=== PATIENT | female | born 1980 | race Caucasian/White ===

== ENCOUNTER 2020-10-07 10:39 | Outpatient (CLI) | payer SELFPAY ==
[2020-10-07 11:45] LABS: SARS-CoV-2 RNA PCR Negative (Negative)
== END 2020-10-07 10:40 | disposition home or self-care (01) ==
PROVIDERS: PCP Internal Medicine; Visit Provider Internal Medicine
DX: Z20.822 Contact with and (suspected) exposure to COVID-19 (principal)
CPT/HCPCS: C9803; U0003; U0005

== ENCOUNTER 2021-01-17 09:44 | Outpatient (CLI) | payer BC, SELFPAY ==
--- NOTE | ~2021-01-17 | XR_ITS ---
XR chest 2V DATE: 01/17/2021 10:19 INDICATION: Fall 3 days ago. Left-sided chest pain. TECHNIQUE: PA and lateral views COMPARISON: 08/23/2014 2 view chest FINDINGS: Normal heart size. No hilar or mediastinal enlargement. No pulmonary infiltrate or consolid ation, pleural effusion or pulmonary vascular congestion or pneumothorax. IMPRESSION: No active cardiopulmonary disease Reviewed, dictated and finalized at location B.
--- NOTE | ~2021-01-17 | XR_ITS ---
XR ribs LT 2V DATE: 01/17/2021 10:19 INDICATION: Fall 3 days ago. Left-sided chest pain. TECHNIQUE: 4 views of the left ribs COMPARISON: None FINDINGS: No left rib fracture is evident. No underlying pulmonary contusion, pleural effusion or pne umothorax. IMPRESSION: Negative Reviewed, dictated and finalized at location B. IMPRESSION: Negative
== END 2021-01-17 09:45 | disposition home or self-care (01) ==
PROVIDERS: PCP Internal Medicine; Visit Provider Internal Medicine
DX: R07.9 Chest pain, unspecified (principal)
CPT/HCPCS: 71046; 71100

== ENCOUNTER 2021-09-03 14:26 | Emergency (ER) | payer OTHER, SELFPAY ==
--- NOTE | ~2021-09-03 | CT_ITS ---
EXAMINATION: CT abdomen pelvis wo con DATE: 09/03/2021 15:24 INDICATION: Left flank pain, dysuria for 6 hours TECHNIQUE: Computed tomography (CT) of the abdomen and pelvis was performed without intravenous contr ast. Automated exposure control and iterative reconstruction technique were employed. Exam dose: 133 2.36 mGy-cm total exam DLP. COMPARISON: None. FINDINGS: The lung bases are clear. Normal heart size. No pericardial or pleural effusion. 7 mm hypoattenuating lesion of the hepatic dome; diffusion diagnosis includes most likely a hepatic c yst or hemangioma. Probable focal anterior fatty infiltration of the medial segment of the left hepat ic lobe. Status post cholecystectomy. Approximately 4.5 mm nonobstructing lower pole left renal calculus. No other urinary tract calculus o r hydroureteronephrosis is evident. There is some thickening of the anteriorly directed left renal pe lvis with adjacent fat stranding, which might be consistent with left urinary tract infection. Recomm end clinical correlation with urinalysis. Normal caliber of the abdominal aorta. No intraperitoneal or retroperitoneal or pelvic mass lesion or adenopathy or ascites. The uterus, adnexal areas and urinary bladder are unremarkable. Small sliding hiatal hernia. Postoperative change of the stomach and proximal small bowel. Normal destiny endix. No bowel obstruction or intraperitoneal free air. Small fat-containing umbilical hernia. No suspicious osteolytic or osteoblastic lesions. Degenerative changes of the thoracic and lumbar spi ne. IMPRESSION: Thickening of the left renal pelvis with mild adjacent fat stranding, suggesting left py elitis 4.5 mm nonobstructing lower pole left renal calculus Status post cholecystectomy. Postoperative change of the stomach and proximal small bowel Small sliding hiatal hernia Reviewed, dictated and finalized at Location [facility]. Reviewed, dictated and finalized at location A. IMPRESSION: Thickening of the left renal pelvis with mild adjacent fat strandi ng, suggesting left pyelitis 4.5 mm nonobstructing lower pole left renal calculus Status post cholecystectomy. Postoperative change of the stomach and proximal small bowel Small sliding hiatal hernia
[2021-09-03 14:42] VITALS: BP 137/78; PULSE 58; RESP 20; TEMP 36.2; O2SAT 95
--- NOTE | 2021-09-03 14:44 | ED.FEMALEGU ---
HPI - Female Genitourinary General Chief complaint: Abdominal Pain Stated complaint: back/side pain, unable to urinate or have a BM Source: patient and RN notes reviewed Mode of arrival: ambulatory Limitations: no limitations History of Present Illness MD elicited complaint: dysuria and flank pain (left) Onset (ago): hour(s) (5) Severity: moderate Quality of pain: dull and aching Consistency: constant Vaginal discharge: none Vaginal bleeding: none Urinary symptoms: Dysuria, Urgency, Frequency and Hematuria Exacerbating factors: movement Relieving factors: none Associated symptoms: denies other symptoms Treatment prior to arrival: none Patient : No Related Data Home Medications Medication Instructions Recorded Confirmed omeprazole 40 mg capsule,delayed 40 mg PO BID 02/02/21 release tramadol 50 mg tablet 50 mg PO Q6H PRN 02/02/21 Allergies Allergy/AdvReac Type Severity Reaction Status Date / Time Penicillins Allergy Unknown Hives Verified 02/02/21 08:40 Review of Systems Review of Systems: All systems reviewed & are unremarkable except as noted in HPI and below Constitutional: Constitutional: Denies chills and Denies fatigue Gastrointestinal: Gastrointestinal: Denies diarrhea, Denies nausea and Denies vomiting PMFSH Past Medical History Medical History (Updated 09/03/21 @ 16:29 by James Owens MD) Chronic LUQ pain Morbid obesity Nausea Surgical History Surgical History (Updated 09/03/21 @ 14:54 by James Owens MD) Gastric bypass status for obesity Family History Family History Father Hypertension Family history of elevated blood lipids Family history of diabetes mellitus in first degree relative Other Carcinoma of colon Cerebrovascular accident Family history of allergic disorder Family history of malignant neoplasm Family history of tuberculosis Social History Social History Smoking status: Never smoker Alcohol intake: current Substance use: never Exam Const: General: healthy appearing, no acute distress and alert Nutritional Appearance: well nourished and obese morbidly obese Orientation/consciousness: patient oriented x3 HENMT: Head: normal to inspection Ears: external ears normal Eyes: Conjunctivae: conjunctivae normal Pupils: Equal, round and reactive pupils present EOM: EOMs intact bilaterally Neck: Neck: normal visual inspection Resp: Effort & Inspection: normal respiratory effort Auscultation: clear to auscultation bilaterally Cardio: Rate: regular rate Rhythm: regular rhythm GI: GI Palp: Yes Soft to palpation, Yes Tenderness to palpation present (GI) (LUQ), Yes Guarding due to palpation present (GI) (LUQ) and No Rebound tenderness present Auscultation: normal bowel sounds : General: Yes CVA tenderness on the left Back/Spine/Pelvis: Cervical Spine: cervical ROM normal Thoracic/Lumbar Spine: thoraco-lumbar ROM normal Skin: General skin exam: normal color Rashes: no rashes Neuro: General: patient oriented x3, moves all extremities, no meningeal signs, no focal motor deficits and CN's II-XI intact bilaterally Speech: normal speech Gait exam (Neuro): Normal gait present Extrem: General: normal to inspection and no clubbing, cyanosis or edema Psych: Mental Status: mental status grossly normal Affect: normal affect Attitude: cooperative Thought content: Yes Normal thought content present Judgement: Good judgement present (Psych) Discharge Plan Discharge Clinical Impression: UTI (urinary tract infection) Qualifiers: Urinary tract infection type: acute pyelonephritis Qualified Code(s): N10 - Acute pyelonephritis Patient Disposition: Home, Self-Care Condition: Stable Instructions: Antibiotic Form, Kidney Infection (ED) Additional Instructions: follow-up with your primary care provider in 3-5 days to be sure i
[2021-09-03 14:55] LABS: Add Urine Microscopic? YES; Appearance Urine Clear (Clear); Bilirubin Urine 1+ (Negative); Blood Urine 2+ (Negative); Color Urine Yellow (Yellow); Glucose Urine UA Negative (Negative); Ketones Urine Trace (Negative); Leukocyte Esterase Ur 1+ LEU/UL (Negative); Nitrate Urine Positive (Negative); Protein Urine 2+ (Negative); Specific Grav Ur 1.025 (1.010-1.020); Urobilinogen Urine 0.2 mg/dL (0.2-1.0); pH Urine 5.5 (5.0-8.0)
[2021-09-03 15:01] LABS: Bacteria Urine 4+ /hpf; Mucus Urine Few /lpf; RBC Urine 21-50 /hpf (0-2); Squamous Epithelial Cell Urine Rare /hpf (Few); WBC Urine 16-20 /hpf (0-3)
[2021-09-03 15:12] LABS: Basophils Absolute Auto 0.03 K/mm3 (0.00-0.10); Basophils Percent Auto 0.6 % (0.0-1.0); Eosinophils Absolute Auto 0.02 K/mm3 (0.02-0.50); Eosinophils Percent Auto 0.4 % (1.0-6.0); Hematocrit 39.1 % (35.0-49.0); Hemoglobin 12.2 g/dL (12.0-15.0); Immature Granulocyte Absolute 0.01 K/mm3 (0.00-0.00); Immature Granulocyte Percent A 0.2 % (0.0-0.0); Lymphocytes Absolute Auto 1.23 K/mm3 (1.10-4.50); Lymphocytes Percent Auto 25.7 % (18.0-42.0); Mean Corpuscular HGB Conc 31.2 g/dL (32.0-36.0); Mean Corpuscular Hemoglobin 26.7 pg (27.0-31.0); Mean Corpuscular Volume 85.6 fL (78.0-102.0); Mean Platelet Volume 12.2 fl (9.2-11.8); Monocytes Absolute Auto 0.28 K/mm3 (0.10-0.90); Monocytes Percent Auto 5.8 % (2.0-11.0); Neutrophils Absolute Auto 3.2 K/mm3 (1.7-7.2); Neutrophils Percent Auto 67.3 % (50.0-70.0); Platelet Count Result 199 K/mm3 (150-420); Red Blood Count 4.57 M/mm3 (4.20-5.40); Red Cell Distribution Width 15.2 % (11.6-14.4); White Blood Count 4.8 K/mm3 (4.8-10.8)
[2021-09-03 15:27] LABS: Alanine Aminotransferase 37 U/L (14-59); Albumin Level 3.5 g/dL (3.4-5.0); Alkaline Phosphatase 63 U/L (46-116); Anion Gap 10 mmol/L (8-16); Aspartate Amino Transferase 28 U/L (15-37); Bilirubin,Total 1.2 mg/dL (0.00-1.00); Blood Urea Nitrogen 5 mg/dL (7-18); CRP 0.8 mg/dL (0.0-0.9); Calcium 8.5 mg/dL (8.5-10.1); Carbon Dioxide 30 mmol/L (21-32); Chloride 101 mmol/L (98-108); Estimated CRCL calculation 156 ml/min; Estimated Glomerular Filt Rate > 60; Glucose 123 mg/dL (70-99); Osmolality Calculated 290 mOsm/kg (285-295); Potassium 2.7 mmol/L (3.5-5.1); Sodium 141 mmol/L (136-145); Total Protein 6.7 g/dL (6.4-8.2)
[2021-09-03] MEDS: POTASSIUM BICARBONATE 25 MEQ TABEF 50 MEQ PO (15:45)
[2021-09-03] MEDS: cefTRIAXone 1 GM VIAL IM (16:25)
[2021-09-03] MEDS: LIDOCAINE HCL 1% LOCAL INJ 20 ML VIAL (16:25)
[2021-09-03 16:59] VITALS: BP 107/62; PULSE 60; RESP 20; TEMP 36.7; O2SAT 97
== END 2021-09-03 17:01 | disposition home or self-care (01) ==
PROVIDERS: Emergency Provider Emergency Medicine; PCP Internal Medicine
DX: N10 Acute pyelonephritis (principal)
CPT/HCPCS: 36415; 74176; 80053; 81001; 85025; 86140; 87077; 87086; 87088; 87186; 96372; 99284; A9270; J0696

== ENCOUNTER 2022-07-05 12:55 | Emergency (ER) | payer OTHER, SELFPAY ==
[2022-07-05 13:05] VITALS: BP 130/83; PULSE 64; RESP 18; TEMP 36.5; O2SAT 100
--- NOTE | 2022-07-05 13:56 | ED.NEUROSD ---
HPI - Neuro Symptoms/Deficit General Chief Complaint: Neuro Symptoms/Deficit Stated Complaint: TIRED/L ARM PAIN/L FACIAL NUMBNESS/ELEVATED BP Time Seen by Provider: 07/05/22 13:08 Source: patient Mode of arrival: ambulatory Limitations: no limitations History of Present Illness HPI Narrative: Ms. Simmons is a 42-year-old female patient presenting to clinic today with complaints of fatigue, left arm pain, left-sided facial numbness and tingling, elevated blood pressure, headache, and dizziness. She reports headache started on Saturday- dull ache. She developed the other symptoms last night and felt like this may be caused by anxiety so she took her Lexapro and states that this did not help with the symptoms. She reports the dizziness is more when she is getting up quickly and change of positions. Left arm pain is becoming gradually worse, however the left facial numbness is improving and states that it is only her upper lip that feels numb and tingling. She denies having an unsteady gait or any recent falls. She denies any acute or history of head injury. History of duodenal switch and cholecystectomy. She is a nonsmoker. Currently on her menses and does not take control. No history of diabetes. Denies any chest pain or shortness of breath. Related Data Home Medications Medication Instructions Recorded Confirmed escitalopram oxalate 10 mg tablet 10 mg PO DAILY 07/05/22 07/05/22 Allergies Allergy/AdvReac Type Severity Reaction Status Date / Time Penicillins Allergy Unknown Hives Verified 07/05/22 13:08 Review of Systems Review of Systems: Pertinent positives per HPI. Patient denies any fever, chills, rash, headache, visual changes, dizziness, cough, runny nose, sore throat, shortness of breath, chest pain, palpitations, nausea, vomiting, diarrhea, constipation, abdominal pain, or any urinary issues. [facility] Past Medical History Medical History (Updated 07/05/22 @ 14:37 by Tyrell Lopez APRN) Chronic LUQ pain Morbid obesity Nausea Surgical History Surgical History (Updated 09/03/21 @ 14:54 by James Owens MD) Gastric bypass status for obesity Family History Family History Father Hypertension Family history of elevated blood lipids Family history of diabetes mellitus in first degree relative Other Carcinoma of colon Cerebrovascular accident Family history of allergic disorder Family history of malignant neoplasm Family history of tuberculosis Social History Social History Smoking status: Never smoker Alcohol intake: current Substance use: never Comments At the time of my signature, I reviewed and agree with the nursing past medical, surgical, social, and family history. There is no relevant family history pertinent to the patient complaint. Exam Narrative: General: Well-developed, well nourished, in no apparent distress Head: Normocephalic, atraumatic Eyes: Pupils equally round and reactive to light bilaterally, EOM intact, sclera and conjunctive clear, no discharge, lids normal Ears: TMs intact and clear, ear canals clear, no drainage, grossly hearing normal. Nose: Nares patent, no discharge, no inflammation, no sinus tenderness. Mouth: Oropharynx without lesions or masses, good dentition, MMM. Tongue midline, even rise and fall of uvula Neck: Supple, trachea midline, no enlargement of anterior or posterior cervical nodes, no thyroid masses or goiter palpable. Cardio: Regular rate and rhythm, s1 and s2 normal, no murmur appreciated. Resp: Clear to auscultation bilaterally anteriorly and posteriorly, no rhonchi, rales, wheezing or rubs Musculoskeletal: No deformity, non-tender to palpation, grossly normal range of motion, muscle strength strong and equal, peripheral pulse strong, no edema, no cyanosis, normal gait and station Neuro: Alert and oriented x4 with
== END 2022-07-05 13:23 | disposition short-term general hospital (02) ==
PROVIDERS: Emergency Provider Nurse Practitioner Family; PCP Internal Medicine
DX: R20.2 Paresthesia of skin (principal); R42 Dizziness and giddiness; M79.602 Pain in left arm; R51.9 Headache, unspecified; R53.83 Other fatigue; E66.01 Morbid (severe) obesity due to excess calories; Z68.38 Body mass index [BMI] 38.0-38.9, adult; Z98.84 Bariatric surgery status
CPT/HCPCS: 99213; G0463

== ENCOUNTER 2022-07-05 13:50 | Emergency (ER) | payer OTHER, SELFPAY ==
[2022-07-05] VITALS (7 sets, daily range): BP systolic 97–127; BP diastolic 59–78; PULSE 51–64; RESP 14–16; TEMP 36.7; O2SAT 97–98
--- NOTE | ~2022-07-05 | XR_ITS ---
XR chest 2V DATE: 07/05/2022 15:25 INDICATION: Facial and left arm numbness for 8 hours TECHNIQUE: PA and lateral views COMPARISON: 01/22/2021 2 view chest FINDINGS: Normal heart size. No hilar or mediastinal enlargement. No pulmonary infiltrate or consolid ation, pleural effusion or pulmonary vascular congestion or pneumothorax. Status post cholecystectomy. IMPRESSION: No active cardiopulmonary disease Reviewed, dictated and finalized at location L. ATED WORK PLATFORM OPERATOR
--- NOTE | ~2022-07-05 | CT_ITS ---
EXAMINATION: CT brain wo con DATE: 07/05/2022 18:11 INDICATION: Left facial numbness and tingling. TECHNIQUE: Computed tomography (CT) of the head was performed without intravenous contrast. The mA wa s adjusted according to patient size. Iterative reconstruction technique was employed. The dose-lengt h product was 605.33 mGy-cm. 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 There is no intracranial hemorrhage, acute infarction, or abnormal intracranial mass lesion. The ventricles are normal in size. There is mild mucosal thickening in the paranasal sinuses. The orb its are normal. The mastoid air cells are normal. IMPRESSION: 1. 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 Reviewed, dictated and finalized at location A. L PRODUCER IMPRESSION: 1. Prominent perivascular space versus old infarct in the left parietal deep wh ite matter.
--- NOTE | ~2022-07-05 | US_ITS ---
EXAMINATION: US venous doppler E DATE: 07/05/2022 18:42 INDICATION: Left upper limb pain. TECHNIQUE: Grayscale ultrasound images without and with compression and Doppler ultrasound images of the left upper extremity veins were obtained. COMPARISON: None. FINDINGS: The visualized portions of the left internal jugular vein, subclavian vein, axillary vein, brachial v eins, basilic vein, radial vein, and ulnar vein are patent. IMPRESSION: 1. No deep venous thrombosis. Reviewed, dictated and finalized at location A. EMATICS LECTURER
--- NOTE | 2022-07-05 13:57 | ECG_ITS ---
Measurements Intervals [place] Rate: 54 P: 45 AL: 194 QRS: 18 QRSD: 91 T: 30 QT: 426 QTc: 406 Interpretive Statements SINUS BRADYCARDIA BORDERLINE ECG NO PREVIOUS ECG AVAILABLE FOR COMPARISON Electronically Signed On 07-05-2022 14:40:26 CUT FILER by Behzad Arevalo D.O.
[2022-07-05 14:16] LABS: Basophils Percent Auto 0.9 % (0.2-1.2); Eosinophils Absolute Auto 0.1 K/mm3 (0-0.3); Eosinophils Percent Auto 1.2 % (0-4.4); Hematocrit 32.7 % (37.0-47.0); Hemoglobin 10.2 g/dL (12.0-15.0); Lymphocytes Absolute Auto 1.81 K/mm3 (0.9-3.2); Lymphocytes Percent Auto 41.7 % (18.3-44.2); Mean Corpuscular HGB Conc 31.2 g/dl (32-36); Mean Corpuscular Hemoglobin 26.6 pg (26-34); Mean Corpuscular Volume 85.2 fl (80-100); Mean Platelet Volume 11.4 fl (7.4-10.4); Monocytes Absolute Auto 0.2 K/mm3 (0.1-0.6); Monocytes Percent Auto 5.3 % (2.6-8.5); Neutrophils Absolute Auto 2.2 K/mm3 (1.3-6.7); Neutrophils Percent Auto 50.9 % (45.5-73.1); Platelet Count Result 182 k/mm3 (150-375); Red Blood Count 3.84 M/mm3 (4.2-5.4); Red Cell Distribution Width 15.6 % (11.5-14.5); White Blood Count 4.3 K/mm3 (4.5-10.0)
[2022-07-05 14:22] LABS: Glucose Point of Care 83 mg/dl (65-105)
[2022-07-05 14:25] LABS: Alanine Aminotransferase 28 U/L (6-35); Albumin Level 4.1 g/dL (3.5-5.1); Alkaline Phosphatase 93 U/L (38-126); Anion Gap 4 mmol/L (8-16); Aspartate Amino Transferase 30 U/L (14-36); Bilirubin,Total 1.4 mg/dL (0.2-1.3); Blood Urea Nitrogen 6 mg/dL (7-17); Calcium 8.1 mg/dL (8.4-10.2); Carbon Dioxide 30 mmol/L (22-30); Chloride 101 mmol/L (98-107); Estimated Glomerular Filt Rate > 60; Glucose 95 mg/dL (65-110); Potassium 3.1 mmol/L (3.4-5.0); Sodium 135 mmol/L (137-145)
[2022-07-05 14:26] LABS: INR 1.1; Prothrombin Time 14.1 Seconds (11.1-14.7)
[2022-07-05 14:36] LABS: Troponin I < 0.012 ng/mL (0.000-0.034)
--- NOTE | 2022-07-05 17:22 | ED.GENADULT ---
HPI - General Adult General Chief complaint: Neuro Symptoms/Deficit Stated complaint: lue pain Time Seen by Provider: 07/05/22 17:22 Source: patient Mode of arrival: ambulatory Limitations: no limitations History of Present Illness HPI narrative: Patient is a 42 y/o female who presents to the ED with c/o LUE pain, left-sided facial numbness/tingling. Patient reports she developed slight numbness and tingling in her left-sided face last night. She states the tingling was only present in her left upper lip this morning, which has since resolved since being in the ED. Patient also reported having pain in her left upper arm last night. The pain has since persisted and has been constant. She states the pain is now radiating into her lower arm. She has not tried anything for these symptoms. She denies history of similar symptoms. She denies any chest pain, difficulty breathing, nausea, vomiting, focal weakness, confusion, slurred speech, difficulty swallowing, vision changes, dizziness, lightheadedness. Related Data Home Medications Medication Instructions Recorded Confirmed escitalopram oxalate 10 mg tablet 10 mg PO DAILY 07/05/22 07/05/22 Allergies Allergy/AdvReac Type Severity Reaction Status Date / Time Penicillins Allergy Unknown Hives Verified 07/05/22 13:08 Review of Systems Review of Systems: CONSTITUTIONAL: Denies fever, chills, or sweats. EYES: Denies visual changes. CARDIOVASCULAR: Denies chest pain. RESPIRATORY: Denies dyspnea. GASTROINTESTINAL: Denies abdominal pain, nausea, vomiting, or diarrhea. MUSCULOSKELETAL: See HPI. NEUROLOGIC: See HPI. All systems reviewed & are unremarkable except as noted in HPI and below PMFSH Past Medical History Medical History Anxiety Chronic LUQ pain Morbid obesity Nausea Surgical History Surgical History Gastric bypass status for obesity Status post biliopancreatic diversion with duodenal switch Family History Family History Father Hypertension Family history of elevated blood lipids Family history of diabetes mellitus in first degree relative Other Carcinoma of colon Cerebrovascular accident Family history of allergic disorder Family history of malignant neoplasm Family history of tuberculosis Social History Social History Smoking status: Never smoker Alcohol intake: current Substance use: never Exam Narrative: GENERAL: Well appearing, obese, non-toxic, in no acute distress. HEAD: Normocephalic, atraumatic. EYES: PERRL/EOMI, conjunctivae clear bilaterally. No nystagmus. NECK: Supple. No adenopathy, no masses. RESPIRATORY: Airway patent, respirations nonlabored. Clear to auscultation bilaterally, no rales, rhonchi, wheezing. CARDIOVASCULAR: Regular rate and rhythm without murmurs, rubs, or gallops. Radial pulses 2+ and equal bilaterally. ABDOMINAL: Soft, nontender, nondistended, no hepatosplenomegaly. Normoactive BS. MUSCULOSKELETAL: Moves all extremities. Strength/ROM intact without gross deformities or TTP. No edema. No calf tenderness. No significant tenderness to palpation throughout left upper extremity. Patient reporting mild discomfort in the left medial upper arm with fall LUE flexion overhead. SKIN: Warm, dry, normal color. No rashes. NEURO: A&O X3. Speech clear. Follows commands. CN II-XII intact. Sensation grossly intact. Steady gait. No ataxic movements. Strength 5/5 in upper and lower extremities bilaterally. Equal aircraft launch and recovery technician strength bilaterally. Atoa-iq-[id number] and [id number] testing intact bilaterally. No pronator drift. PSYCHIATRIC: Appropriate mood and affect. Normal interaction. Course Vital Signs Vital signs: Vital Signs Temperature 98.0 F 07/05/22 13:58 Pulse Rate 51 L 07/05/22
[2022-07-05 18:19] LABS: Magnesium 1.9 mg/dL (1.6-2.3)
[2022-07-05 18:32] LABS: Troponin I < 0.012 ng/mL (0.000-0.034)
[2022-07-05] MEDS: POTASSIUM CHLORIDE 20 MEQ TABLET 40 MEQ PO (18:49)
[2022-07-05 19:12] LABS: Influenza A QL RT-PCR Negative (Negative); Influenza B QL RT-PCR Negative (Negative); SARS-CoV-2 RNA PCR Negative
[2022-07-05] MEDS: ACETAMINOPHEN 500 MG TABLET 1000 MG PO (20:11)
== END 2022-07-05 20:22 | disposition home or self-care (01) ==
PROVIDERS: Emergency Medicine; Emergency Provider Physician Assistant; PCP Internal Medicine
DX: M79.602 Pain in left arm (principal); R20.2 Paresthesia of skin; Z20.822 Contact with and (suspected) exposure to COVID-19; F41.9 Anxiety disorder, unspecified; E66.01 Morbid (severe) obesity due to excess calories; Z98.84 Bariatric surgery status; R00.1 Bradycardia, unspecified
CPT/HCPCS: 36415; 70450; 71046; 80053; 81025; 82948; 83735; 84484; 85025; 85610; 85730; 87636; 93005; 93971; 99284; A9270

== ENCOUNTER 2023-02-19 08:05 | Emergency (ER) | payer OTHER, SELFPAY ==
--- NOTE | 2023-02-19 08:13 | ED.GENADULT ---
HPI - General Adult General Chief complaint: Upper Respiratory Infection Stated complaint: Ear ache;Congested nose;Nausea;Chills Source: patient, family and RN notes reviewed History of Present Illness HPI narrative: 42 yo F presents to urgent care with visitor at side. Pt states she began having runny nose and congestion yesterday. Pt states she had a sore throat yeterday but not today. Pt reports bilateral ear pressure, denies any pain. Pt is also stating she thinks she has a UTI and kidney stone. Pt reports left lower back, flank, and LLQ abdominal pain starting this morning along with nausea and urinary urgency. Pt also reporting chills. Denies any fevers, chest pain, diarrhea, or vomiting. Pt states she has had kidney stones before and this feels like one, but it's not as bad as the other one. Pt has taken Tylenol and a muscle relaxer at home. Related Data Home Medications Medication Instructions Recorded Confirmed No Home Medications 02/19/23 02/19/23 Allergies Allergy/AdvReac Type Severity Reaction Status Date / Time Penicillins Allergy Unknown Hives Verified 02/19/23 08:21 Review of Systems Review of Systems: Pertinent positives and pertinent negatives per HPI. PMFSH Past Medical History Medical History Anxiety Chronic LUQ pain Morbid obesity Nausea Surgical History Surgical History Gastric bypass status for obesity Status post biliopancreatic diversion with duodenal switch Family History Family History Father Hypertension Family history of elevated blood lipids Family history of diabetes mellitus in first degree relative Other Carcinoma of colon Cerebrovascular accident Family history of allergic disorder Family history of malignant neoplasm Family history of tuberculosis Social History Social History Smoking status: Never smoker Alcohol intake: current Substance use: never Comments At the time of my signature, I reviewed and agree with the nursing past medical, surgical, social, and family history. There is no relevant family history pertinent to the patient complaint. Exam Narrative: GENERAL: This is a well-nourished, well-developed patient, in no apparent distress. HEAD: normocephalic, atraumatic. EYES: Sclera clear/white. Vision is grossly intact. EARS: External ears normal, auditory canals clear and without drainage, TMs normal without perforation. Hearing grossly intact. NOSE: External nose normal with obvious nasal clear discharge, nares without redness. congestion noted. THROAT: Mucous membranes moist, posterior pharynx clear. NECK: Neck supple, non-tender without lymphadenopathy, masses or thyromegaly. CARDIOVASCULAR: Regular rate and rhythm without murmurs, gallops, or rubs. RESPIRATORY: Clear to auscultation. Breath sounds equal bilaterally. No wheezes, rales, or rhonchi. GASTROINTESTINAL: Abdomen soft, tender to LLQ, nondistended. Bowel sounds are active. No hepato-splenomegaly, or palpable masses. SKIN: warm, intact with no suspicious lesions or rash, good texture and turgor. NEURO: awake, alert, and oriented to person, place and time. There were no obvious focal neurologic abnormalities. EXTREMITIES: No clubbing, cyanosis, or edema. No joint tenderness, effusion, or edema noted. BACK: tender to left lower and left flank. Course Course Level of Care: Express Care Visit Vital Signs Vital signs: Vital Signs Temperature 96.9 F L 02/19/23 08:16 Pulse Rate 64 02/19/23 08:16 Respiratory Rate 16 02/19/23 08:16 Blood Pressure 114/74 02/19/23 08:16 Pulse Oximetry 100 02/19/23 08:16 Temperature 96.9 F L 02/19/23 08:17 Pulse Rate 64 02/19/23 08:17 Respiratory Rate 16 02/19/23 08:
[2023-02-19 08:16] VITALS: BP 114/74; PULSE 64; RESP 16; TEMP 36.1; O2SAT 100
[2023-02-19 08:17] VITALS: BP 114/74; PULSE 64; RESP 16; TEMP 36.1; O2SAT 100
== END 2023-02-19 08:45 | disposition short-term general hospital (02) ==
PROVIDERS: Emergency Provider Nurse Practitioner Family; PCP Internal Medicine
DX: R10.9 Unspecified abdominal pain (principal); J06.9 Acute upper respiratory infection, unspecified; E66.01 Morbid (severe) obesity due to excess calories; Z68.39 Body mass index [BMI] 39.0-39.9, adult
CPT/HCPCS: 81003; 99212; G0463

== ENCOUNTER 2023-02-19 09:08 | Emergency (ER) | payer OTHER, SELFPAY ==
--- NOTE | ~2023-02-19 | CT_ITS ---
EXAMINATION: CT abdomen pelvis w con INDICATION: Flank pain and nausea TECHNIQUE: Computed tomographic images of the abdomen and pelvis were obtained after the administrati on of 100 cc of Omnipaque 350 intravenous contrast. The dose-length product (DLP) was 1344.11 mGy-cm. Automated exposure control and iterative reconstruction technique were employed. COMPARISON: 08/16/2021 FINDINGS: Minimal dependent atelectasis is present in the lung bases. The heart size is normal. There is a small sliding hiatal hernia. Changes in the stomach likely reflect gastric sleeve surgery. Gomes ges of cholecystectomy are noted. There is mild splenomegaly, likely due to body habitus. The liver, pancreas, and adrenal glands are normal. There are three nonobstructing stones of the left kidney whi ch measure up to 5 mm. The right kidney is unremarkable. No pathologically enlarged abdominal or pelv ic lymph nodes are identified. No free intraperitoneal gas or evidence of bowel obstruction. The appe ndix is normal. IMPRESSION: 1. Nonobstructing left nephrolithiasis. Reviewed, dictated and finalized at location L.
[2023-02-19 09:10] VITALS: BP 127/57; PULSE 66; RESP 16; TEMP 36.5; O2SAT 100
--- NOTE | 2023-02-19 09:48 | PC.NURSE ---
Pt to bathroom, states she passed kidney stone & is feeling better
--- NOTE | 2023-02-19 10:45 | ED.GENADULT ---
HPI - General Adult General Chief complaint: Abdominal Pain Stated complaint: LLQ abdominal pain with flank pain - from Time Seen by Provider: 02/19/23 09:55 History of Present Illness HPI narrative: Patricia Simmons is a 42 y/o female who presents with reports of having left flank pain that started today. She reports that she went to an today and was encouraged to come here for further work up. She reports her urine was negative for infection at the but she is concerned that she might have an infection since she has urinary urgency today. She also reports that the pain feels similar to a kidney stone. She denies any fever/chills / nausea/vomiting / abdominal pain /chest pain/ shortness of breath. Related Data Allergies Allergy/AdvReac Type Severity Reaction Status Date / Time Penicillins Allergy Unknown Hives Verified 02/19/23 09:08 Review of Systems Review of Systems: CONSTITUTIONAL: Denies fever, chills, or sweats. EYES: Denies visual changes, redness, or discharge. ENT: Denies rhinorrhea, congestion, sore throat, or otalgia. CARDIOVASCULAR: Denies chest pain, palpitations, or edema. RESPIRATORY: Denies cough or dyspnea. GASTROINTESTINAL: Denies abdominal pain, nausea, vomiting, or diarrhea. Reports of left flank pain GENITOURINARY: Denies dysuria or hematuria. SKIN: Denies rash or itching. MUSCULOSKELETAL: Denies back pain, joint pain, or myalgia. NEUROLOGIC: Denies headache, numbness, dizziness, or weakness. PSYCHIATRIC: Denies anxiety or depression. [facility] Past Medical History Medical History Anxiety Chronic LUQ pain Morbid obesity Nausea Surgical History Surgical History Gastric bypass status for obesity Status post biliopancreatic diversion with duodenal switch Family History Family History Father Hypertension Family history of elevated blood lipids Family history of diabetes mellitus in first degree relative Other Carcinoma of colon Cerebrovascular accident Family history of allergic disorder Family history of malignant neoplasm Family history of tuberculosis Social History Social History Smoking status: Never smoker Alcohol intake: current Substance use: never Exam Narrative: GENERAL: Well-appearing, well-nourished, and in no acute distress. HEAD: Normocephalic, atraumatic. EYES: PERRLA and EOMI. ENT: Nares clear, no rhinorrhea or epistaxis. Mucous membranes moist. Oropharynx without tonsillar hypertrophy exudate or other lesions. NECK: Supple. No adenopathy or masses. No carotid bruits or JVD CHEST: Clear to auscultation. No respiratory distress. No wheezes rales or rhonchi HEART: Regular rate and rhythm. No murmur heard. Normal peripheral pulses. ABDOMEN: Soft, nontender, nondistended, normal active bowel sounds. Left CVA tenderness EXTREMITIES: Normal range of motion. No edema. SKIN: Warm, dry, no rash. NEURO: No focal deficits. Alert and oriented x3. PSYCH: Normal mood and affect. Course Vital Signs Vital signs: Vital Signs Temperature 36.5 C 02/19/23 09:10 Pulse Rate 66 02/19/23 09:10 Respiratory Rate 16 02/19/23 09:10 Blood Pressure 127/57 L 02/19/23 09:10 Pulse Oximetry 100 02/19/23 09:10 Oxygen Delivery Room Air 02/19/23 09:10 Temperature 36.5 C 02/19/23 09:10 Pulse Rate 64 02/19/23 12:54 Respiratory Rate 18 02/19/23 12:54 Blood Pressure 130/60 02/19/23 12:54 Pulse Oximetry 100 02/19/23 12:54 Oxygen Delivery Room Air 02/19/23 09:10 Medical Decision Making [facility] Narrative Medical decision making narrative: On exam pt reports that her pain has actually improved while here and believes she passed a kidney stone in the toilet while she was here giving her urine sample. She states that sh
[2023-02-19 11:17] LABS: Basophils Percent Auto 1.1 % (0.2-1.2); Eosinophils Percent Auto 0.4 % (0-4.4); Hematocrit 29.6 % (37.0-47.0); Hemoglobin 8.6 g/dL (12.0-15.0); Immature Granulocyte Absolute 0.01 K/mm3 (0.00-0.031); Immature Granulocyte Percent A 0.4 % (0-0.5); Lymphocytes Absolute Auto 0.75 K/mm3 (0.9-3.2); Lymphocytes Percent Auto 26.8 % (18.3-44.2); Mean Corpuscular HGB Conc 29.1 g/dl (32-36); Mean Corpuscular Hemoglobin 22.6 pg (26-34); Mean Corpuscular Volume 77.7 fl (80-100); Mean Platelet Volume 11.5 fl (7.4-10.4); Monocytes Absolute Auto 0.2 K/mm3 (0.1-0.6); Monocytes Percent Auto 5.7 % (2.6-8.5); Neutrophils Absolute Auto 1.8 K/mm3 (1.3-6.7); Neutrophils Percent Auto 65.6 % (45.5-73.1); Platelet Count Result 230 k/mm3 (150-375); Red Blood Count 3.81 M/mm3 (4.2-5.4); Red Cell Distribution Width 17.3 % (11.5-14.5); White Blood Count 2.8 K/mm3 (4.5-10.0)
[2023-02-19] MEDS: ONDANSETRON INJ 4 MG/2 ML VIAL IV PUSH (11:18)
[2023-02-19] MEDS: FAMOTIDINE 20 MG/2 ML VIAL IV PUSH (11:18)
[2023-02-19] MEDS: SODIUM CHLORIDE 0.9% IV 1,000 ML 999 ML IV CONT (11:18)
[2023-02-19 11:21] LABS: Appearance Urine Clear (Clear); Bacteria Urine 4+ /hpf; Bilirubin Urine Negative (Negative); Blood Urine 1+ (Negative); Color Urine Yellow (Yellow); Glucose Urine UA Negative (Negative); Ketones Urine Negative (Negative); Leukocyte Esterase Ur Trace LEU/UL (Negative); Need Manual Microscopic Reviewed; Nitrate Urine Negative (Negative); Non Pathogenic Casts 0-2; Protein Urine Negative (Negative); RBC Urine 0-2 /hpf (0-2); Specific Grav Ur 1.004 (1.001-1.035); Squamous Epithelial Cell Urine None seen /hpf (Few); Urobilinogen Urine 0.2 mg/dL (<2.0); pH Urine 6.5 (5.0-9.0)
[2023-02-19 11:25] LABS: Alanine Aminotransferase 27 U/L (6-35); Albumin Level 4.1 g/dL (3.5-5.1); Alkaline Phosphatase 87 U/L (38-126); Anion Gap 4 mmol/L (8-16); Aspartate Amino Transferase 31 U/L (14-36); Bilirubin,Total 1.3 mg/dL (0.2-1.3); Blood Urea Nitrogen 6 mg/dL (7-17); Calcium 8.3 mg/dL (8.4-10.2); Carbon Dioxide 30 mmol/L (22-30); Chloride 105 mmol/L (98-107); Estimated CRCL calculation 174 ml/min; Estimated Glomerular Filt Rate > 60; Glucose 90 mg/dL (65-110); Lipase 87 U/L (23-300); Potassium 3.7 mmol/L (3.4-5.0); Sodium 139 mmol/L (137-145)
--- NOTE | 2023-02-19 11:28 | PC.NURSE ---
patient states that there was a stone in the toilet after urinating. continues to feel discomfort
[2023-02-19 11:36] LABS: Lactic Acid Reflex 0.5 mmol/L (0.7-2.0)
[2023-02-19 11:36] LABS: Add Urine Microscopic? YES
[2023-02-19 11:40] LABS: Anisocytosis 1+ (NORMAL); Burr Cells 1+ (NORMAL); Hypochromasia 1+ (NORMAL); Ovalocytes 1+ (NORMAL); Platelet Estimate Adequate (Adequate); Poikilocytosis 1+ (NORMAL); Schistocytes Rare (NORMAL)
[2023-02-19] MEDS: SULFAMETHOXAZOLE/TRIMETHOPRIM 800/160 MG DS TABLET 1 TAB PO (12:52)
[2023-02-19 12:54] VITALS: BP 130/60; PULSE 64; RESP 18; O2SAT 100
== END 2023-02-19 12:55 | disposition home or self-care (01) ==
PROVIDERS: Emergency Provider Nurse Practitioner Family; PCP Internal Medicine
DX: N20.0 Calculus of kidney (principal); N30.01 Acute cystitis with hematuria
CPT/HCPCS: 36415; 74177; 80053; 81001; 81003; 81025; 83605; 83690; 85025; 87077; 87086; 87186; 96361; 96374; 96375; 99284; A9270; J2405; J7030; Q9967

== ENCOUNTER 2023-03-08 10:22 | Outpatient (CLI) | payer OTHER, SELFPAY ==
[2023-03-08 10:45] LABS: Basophils Absolute Auto 0.06 K/mm3 (0.00-0.10); Basophils Percent Auto 1.3 % (0.0-1.0); Eosinophils Absolute Auto 0.05 K/mm3 (0.02-0.50); Eosinophils Percent Auto 1.1 % (1.0-6.0); Hemoglobin 8.6 g/dL (12.0-15.0); Immature Granulocyte Absolute 0.01 K/mm3 (0.00-0.00); Immature Granulocyte Percent A 0.2 % (0.0-0.0); Lymphocytes Absolute Auto 1.79 K/mm3 (1.10-4.50); Lymphocytes Percent Auto 40.2 % (18.0-42.0); Mean Corpuscular HGB Conc 29.7 g/dL (32.0-36.0); Mean Corpuscular Hemoglobin 22.8 pg (27.0-31.0); Mean Corpuscular Volume 76.7 fL (78.0-102.0); Mean Platelet Volume 10.5 fl (9.2-11.8); Monocytes Absolute Auto 0.33 K/mm3 (0.10-0.90); Monocytes Percent Auto 7.4 % (2.0-11.0); Neutrophils Absolute Auto 2.2 K/mm3 (1.7-7.2); Neutrophils Percent Auto 49.8 % (50.0-70.0); Platelet Count Result 164 K/mm3 (150-420); Red Blood Count 3.78 M/mm3 (4.20-5.40); Red Cell Distribution Width 17.9 % (11.6-14.4); White Blood Count 4.5 K/mm3 (4.8-10.8)
[2023-03-08 10:47] LABS: Appearance Urine Clear (Clear); Bilirubin Urine Negative (Negative); Blood Urine Negative (Negative); Color Urine Light Yellow (Yellow); Glucose Urine UA Negative (Negative); Ketones Urine Negative (Negative); Leukocyte Esterase Ur 1+ (Negative); Nitrate Urine Positive (Negative); Protein Urine Negative (Negative); Specific Grav Ur 1.015 (1.010-1.020)
[2023-03-08 11:01] LABS: Add Urine Microscopic? YES; Bacteria Urine 3+ /hpf; RBC Urine None seen /hpf (0-2); Squamous Epithelial Cell Urine Occasional /hpf (Few); WBC Urine 16-20 /hpf (0-3)
[2023-03-08 11:33] LABS: Alanine Aminotransferase 25 U/L (14-59); Albumin Level 3.7 g/dL (3.4-5.0); Alkaline Phosphatase 99 U/L (46-116); Amylase 44 U/L (25-115); Anion Gap 8 mmol/L (8-16); Aspartate Amino Transferase 15 U/L (15-37); Bilirubin,Total 1.4 mg/dL (0.00-1.00); Blood Urea Nitrogen 6 mg/dL (7-18); Calcium 8.6 mg/dL (8.5-10.1); Carbon Dioxide 28 mmol/L (21-32); Chloride 105 mmol/L (98-108); Estimated Glomerular Filt Rate > 60; Ferritin 4 ng/mL (8-252); Glucose 88 mg/dL (70-99); Iron 21 ug/dL (50-170); Lipase 46 U/L (16-77); Osmolality Calculated 288 mOsm/kg (285-295); Percent Iron Saturation 5 % (12-57); Potassium 3.8 mmol/L (3.5-5.1); Sodium 141 mmol/L (136-145); Total Protein 6.8 g/dL (6.4-8.2)
[2023-03-11 23:25] LABS: H pylori, Urea Breath NOT DETECTED (NOT DETECTED)
== END 2023-03-08 10:23 | disposition home or self-care (01) ==
LOC: CHSLAB 10:25
PROVIDERS: PCP Internal Medicine; Visit Provider Nurse Practitioner Family
DX: R82.90 Unspecified abnormal findings in urine (principal); R10.9 Unspecified abdominal pain; N20.0 Calculus of kidney; D64.9 Anemia, unspecified; R16.1 Splenomegaly, not elsewhere classified
CPT/HCPCS: 36415; 80053; 81001; 82150; 82728; 83013; 83540; 83550; 83690; 85025; 87077; 87086; 87088; 87186

== ENCOUNTER 2023-03-22 10:11 | Outpatient (CLI) | payer OTHER, SELFPAY ==
--- NOTE | ~2023-03-22 | XR_ITS ---
Supine and upright views of the abdomen Clinical history: Left nephrolithiasis Findings: Bowel gas pattern is nonspecific. No evidence for obstruction or free air. Probable left lo wer pole renal stones are present, similar to those seen on recent CT. Cholecystectomy clips and righ t mid abdominal suture lines are noted. Osseous structures are intact. Impression: Probable left nephrolithiasis, similar to CT dated 02/19/2023. Reviewed, dictated and finalized at location . Impression: Probable left nephrolithiasis, similar to CT dated 02/19/2023.
== END 2023-03-22 10:12 | disposition home or self-care (01) ==
LOC: CHSIMG 10:13
PROVIDERS: PCP Internal Medicine; Visit Provider Nurse Practitioner
DX: N20.0 Calculus of kidney (principal)
CPT/HCPCS: 74018

== ENCOUNTER 2023-07-26 13:00 | Emergency (ER) | payer OTHER, SELFPAY ==
--- NOTE | ~2023-07-26 | XR_ITS ---
EXAMINATION: XR knee RT 3V DATE: 07/26/2023 14:03 INDICATION: Right knee pain TECHNIQUE: Three views of the right knee were obtained. COMPARISON: None. FINDINGS: Alignment is normal. No fracture or osteochondral lesion. There is mild tricompartmental os teoarthritis characterized by tiny marginal osteophytes. There is a small knee joint effusion. Soft t issues are unremarkable. IMPRESSION: 1. No acute osseous abnormality. Reviewed, dictated and finalized at location B. [employer]
--- NOTE | 2023-07-26 13:11 | ED.LOWEXIN ---
HPI - Extremity Injury (Lower) General Chief Complaint: Extremity Injury, Lower Stated Complaint: Knee pain Time Seen by Provider: 07/26/23 13:30 Source: patient Mode of arrival: ambulatory Limitations: no limitations History of Present Illness HPI Narrative: Patient is a 43-year-old female that presents with right knee pain that started several weeks ago. Patient had been line dancing and thinks she over did it. Since then the pain has improved but then noticed a hard bump on knee. Area is tender to touch. Patient is able to ambulate normally. Patient has been taking Tylenol. Denies any numbness, tingling or weakness to lower rest of the extremity Related Data Home Medications Medication Instructions Recorded Confirmed No Home Medications 07/26/23 07/26/23 Allergies Allergy/AdvReac Type Severity Reaction Status Date / Time Penicillins Allergy Unknown Hives Verified 02/19/23 09:08 Review of Systems Review of Systems: All systems reviewed & are unremarkable except as noted in HPI and below Constitutional: Constitutional: Denies body ache(s), Denies chills, Denies fatigue, Denies fever(s), Denies headache(s), Denies malaise and Denies weakness Eyes: Eyes: Denies blurry vision, Denies irritation and Denies loss of vision ENT: Denies otalgia, Denies headache(s), Denies nasal discharge, Denies sinus pain and Denies sore throat Cardiovascular: Cardiovascular: Denies chest pain, Denies irregular heart rhythm and Denies dyspnea Respiratory: Respiratory: Denies dyspnea Gastrointestinal: Gastrointestinal: Denies abdominal pain, Denies melena, Denies hematochezia, Denies diarrhea, Denies nausea and Denies vomiting Musculoskeletal: Musculoskeletal: Denies back pain, Denies myalgias and Reports arthralgias Integumentary/Breasts: Skin/Breast: Denies pruritus and Denies rash Neurologic: Denies headache(s), Denies loss of vision and Denies weakness Psychiatric: Psychiatric: Reports no additional psychiatric complaints Endocrine: Endocrine: Denies fatigue PMFSH Past Medical History Medical History Anxiety Chronic LUQ pain Morbid obesity Nausea Surgical History Surgical History Gastric bypass status for obesity Status post biliopancreatic diversion with duodenal switch Family History Family History Father Hypertension Family history of elevated blood lipids Family history of diabetes mellitus in first degree relative Other Carcinoma of colon Cerebrovascular accident Family history of allergic disorder Family history of malignant neoplasm Family history of tuberculosis Social History Social History Smoking status: Never smoker Alcohol intake: current Substance use: never Comments At time of signature, agree with nursing past medical, surgical, social and family history. There is no relevant family history pertinent to the presenting complaint. Exam Const: General: cooperative, healthy appearing, comfortable, no acute distress and well nourished Nutritional Appearance: well nourished Orientation/consciousness: patient oriented x3 Limitations: no limitations HENMT: Head: normal to inspection, normocephalic and atraumatic Ears: hearing grossly normal bilaterally and external ears normal Face/Nose/Sinus: Normal external nose present, normal facial exam and face symmetric Face and sinus: normal facial exam and face symmetric Mouth: Yes lip normal Eyes: General: appearance normal, both eyes and all related structures Alignment and Position: alignment normal and position normal Periorbital: periorbital findings normal Eyelids: eyelids normal Pupils: Equal, round and reactive pupils present EOM: EOMs intact bilaterally Neck: Neck: normal visual inspection, full ROM and supple C
[2023-07-26 13:12] VITALS: BP 100/72; PULSE 60; RESP 16; TEMP 36.5; O2SAT 100
[2023-07-26 13:13] VITALS: BP 100/72; PULSE 60; RESP 16; TEMP 36.5; O2SAT 100
== END 2023-07-26 14:42 | disposition home or self-care (01) ==
PROVIDERS: Emergency Provider Nurse Practitioner Family
DX: M25.761 Osteophyte, right knee (principal); M17.11 Unilateral primary osteoarthritis, right knee; M25.461 Effusion, right knee; E66.01 Morbid (severe) obesity due to excess calories; Z68.39 Body mass index [BMI] 39.0-39.9, adult; Z98.84 Bariatric surgery status
CPT/HCPCS: 73562; 99213; G0463

== ENCOUNTER 2023-08-21 12:04 | Emergency (ER) | payer OTHER, SELFPAY ==
--- NOTE | 2023-08-21 12:05 | ED.URI ---
HPI - URI/Sore Throat General Chief Complaint: Upper Respiratory Infection Stated Complaint: RUNNY NOSE/EARS/CHEST HEAVY Time Seen by Provider: 08/21/23 12:05 Source: patient Mode of arrival: ambulatory Limitations: no limitations History of Present Illness HPI Narrative: Patricia is a 43-year-old female patient presenting to the clinic today with complaints of runny nose, cough, ear discomfort, and chest feeling heavy. She reports symptoms have been going on for 2-3 days. She has done at home COVID test was negative. MD elicited complaint: sore throat and nasal congestion Related Data Home Medications Medication Instructions Recorded Confirmed No Home Medications 07/26/23 08/21/23 Allergies Allergy/AdvReac Type Severity Reaction Status Date / Time Penicillins Allergy Unknown Hives Verified 08/21/23 12:31 Review of Systems Review of Systems: Pertinent positives per HPI. Patient denies any fever, chills, rash, headache, visual changes, dizziness, shortness of breath, chest pain, palpitations, nausea, vomiting, diarrhea, constipation, abdominal pain, or any urinary issues. [facility] Past Medical History Medical History Anxiety Chronic LUQ pain Morbid obesity Nausea Surgical History Surgical History Gastric bypass status for obesity Status post biliopancreatic diversion with duodenal switch Family History Family History Father Hypertension Family history of elevated blood lipids Family history of diabetes mellitus in first degree relative Other Carcinoma of colon Cerebrovascular accident Family history of allergic disorder Family history of malignant neoplasm Family history of tuberculosis Social History Social History Smoking status: Never smoker Alcohol intake: current Substance use: never Comments At the time of my signature, I reviewed and agree with the nursing past medical, surgical, social, and family history. There is no relevant family history pertinent to the patient complaint. Exam Narrative: General: Well-developed, obese, in no apparent distress Head: Normocephalic, atraumatic Eyes: Pupils equally round and reactive to light bilaterally, EOM intact, sclera and conjunctive clear, no discharge, lids normal Ears: TMs intact and clear, ear canals clear, no drainage, grossly hearing normal. Nose: Nares patent, no discharge, no inflammation, no sinus tenderness. Mouth: Oral pharynx without lesions or masses, good dentition, MMM. Neck: Supple, trachea midline, no enlargement of anterior or posterior cervical nodes, no thyroid masses or goiter palpable. Cardio: Regular rate and rhythm, s1 and s2 normal, no murmur appreciated. Resp: Clear to auscultation bilaterally, no rhonchi, rales, wheezing or rubs Course Course Emergency Course: Portions of this record may have been created with voice recognition software. Level of Care: Express Care Visit Vital Signs Vital signs: Vital signs reviewed MDM - URI/Sore Throat MDM Narrative Medical decision making narrative: At the time of visit patient is resting comfortably on the exam table. Patient appears to be nontoxic. Labs: COVID and influenza testing was negative in the clinic today. Plan: I suspect patient has URI/viral syndrome. Supportive measures were discussed with the patient and they voiced understanding discharge instructions and agrees to treatment plan. Return precautions reviewed Differential Diagnosis Differential diagnosis: Likely upper respiratory infection, otitis media, sinusitis, viral infection, bronchitis, influenza, pharyngitis and other (COVID) Discharge Plan Discharge Clinical Impression: Acute viral syndrome URI (upper respiratory infection) [place]
[2023-08-21 12:23] VITALS: BP 112/67; PULSE 60; RESP 16; TEMP 36.6; O2SAT 100
== END 2023-08-21 12:52 | disposition home or self-care (01) ==
PROVIDERS: Emergency Provider Nurse Practitioner Family; PCP Internal Medicine
DX: B34.9 Viral infection, unspecified (principal); J06.9 Acute upper respiratory infection, unspecified; Z20.822 Contact with and (suspected) exposure to COVID-19; E66.01 Morbid (severe) obesity due to excess calories
CPT/HCPCS: 87426; 87804; 99213; G0463

== ENCOUNTER 2023-12-18 13:54 | Outpatient (CLI) | payer OTHER, SELFPAY ==
--- NOTE | 2023-12-18 14:05 | PC.NURSE ---
Here for OP infusion of iron
[2023-12-18 14:17] VITALS: BP 112/70; PULSE 68; RESP 18; TEMP 35.8; O2SAT 95
[2023-12-18 14:18] VITALS: BMI 38.4
[2023-12-18] MEDS: IRON SUCROSE COMPLEX 200 MG, IRON SUCROSE COMPLEX 100 MG in SODIUM CHLORIDE 0.9% IV 250 ML 125 MG IVPB (14:21)
[2023-12-18 16:56] VITALS: BP 94/59; PULSE 53; RESP 16; TEMP 36.2; O2SAT 92
--- NOTE | 2023-12-18 16:58 | PC.NURSE ---
IV infusion completed. IV site without redness or swelling. IV discontinued intact and pressure applied. Pressure dressing applied and patient was instructed on site care. Patient able to ambulate to car.
== END 2023-12-18 13:55 | disposition home or self-care (01) ==
PROVIDERS: PCP Internal Medicine; Visit Provider Internal Medicine
DX: D50.9 Iron deficiency anemia, unspecified (principal)
CPT/HCPCS: 96365; 96366; J1756; J7050

== ENCOUNTER 2024-04-05 12:23 | Emergency (ER) | payer OTHER, SELFPAY ==
--- NOTE | ~2024-04-05 | XR_ITS ---
Impression: Clear lungs. Clinical Indication: Cough PA and lateral views of the chest: Comparison: 04/17/2023 Findings: The lungs are clear, without evidence of focal consolidation or pleural effusion. Cardiome diastinal silhouette is within normal limits. There is kyphosis of the thoracic spine with diffuse de generative disc narrowing. Impression: Clear lungs. Reviewed, dictated and finalized at location .
--- NOTE | 2024-04-05 12:27 | ED.URI ---
HPI - URI/Sore Throat General Chief Complaint: Upper Respiratory Infection Stated Complaint: Sore Throat and Chest Pain Time Seen by Provider: 04/05/24 12:31 Source: patient, RN notes reviewed and old records reviewed Mode of arrival: ambulatory Limitations: no limitations History of Present Illness HPI Narrative: 43-year-old female presents to the [facility] with complaints of a sore throat that started Saturday, 4 days ago. Has tried taking cough drops. Also reports cough, for couple a days, concerned that she has pneumonia. Denies fevers, chest pain. States when she coughs her chest feels tight. Nothing when she is just sitting still. Related Data Home Medications Medication Instructions Recorded Confirmed No Home Medications 07/26/23 04/05/24 Allergies Allergy/AdvReac Type Severity Reaction Status Date / Time Penicillins Allergy Unknown Hives Verified 04/05/24 12:31 Review of Systems Review of Systems: All systems reviewed & are unremarkable except as noted in HPI and below Constitutional: Constitutional: Reports no additional constitutional complaints ENT: Reports as per HPI and Reports sore throat Cardiovascular: Cardiovascular: Reports no additional cardiovascular complaints, Denies chest pain and Denies dyspnea Respiratory: Respiratory: Reports as per HPI, Denies chest congestion, Reports cough and Denies dyspnea Gastrointestinal: Gastrointestinal: Reports no additional gastrointestinal complaints, Denies abdominal pain, Denies nausea and Denies vomiting Musculoskeletal: Musculoskeletal: Reports no additional musculoskeletal complaints Integumentary/Breasts: Skin/Breast: Reports system reviewed and no additional complaints, except as docu PMFSH Past Medical History Medical History Anxiety Chronic LUQ pain Morbid obesity Nausea Surgical History Surgical History Gastric bypass status for obesity Status post biliopancreatic diversion with duodenal switch Family History Family History Father Hypertension Family history of elevated blood lipids Family history of diabetes mellitus in first degree relative Other Carcinoma of colon Cerebrovascular accident Family history of allergic disorder Family history of malignant neoplasm Family history of tuberculosis Social History Social History Smoking status: Never smoker Alcohol intake: current Substance use: never Comments At the time of my signature, I reviewed and agree with the nursing past medical, surgical, social, and family history. There is no relevant family history pertinent to the patient complaint. Exam Const: General: cooperative, healthy appearing, comfortable, no acute distress, well developed, alert and well nourished Nutritional Appearance: well nourished Orientation/consciousness: patient oriented x3 Limitations: no limitations HENMT: Head: normal to inspection Ears: hearing grossly normal bilaterally, external ears normal, TM's normal bilaterally, EAC's normal, mastoids normal and no periauricular adenopathy Face/Nose/Sinus: Normal external nose present, normal facial exam and face symmetric Face and sinus: normal facial exam and face symmetric Mouth: Yes Normal oral and palatal mucosa present, Yes lip normal and Yes tongue normal Throat: posterior oropharynx normal, tonsils normal, uvula midline and no uvular edema Eyes: General: appearance normal, both eyes and all related structures Alignment and Position: alignment normal Periorbital: periorbital findings normal Neck: Neck: normal visual inspection, full ROM, no lymphadenopathy and no meningeal signs Chest: Chest palpation & inspection: normal inspection of the chest Resp: Effort & Inspection: normal respiratory effort and able to sp
[2024-04-05 12:35] VITALS: BP 100/70; PULSE 71; RESP 16; TEMP 36.6; O2SAT 100
[2024-04-05 12:57] LABS: EDSTREPNEGPOS1 Negative (Negative)
== END 2024-04-05 13:17 | disposition home or self-care (01) ==
PROVIDERS: Emergency Provider Nurse Practitioner; PCP Internal Medicine
DX: J02.8 Acute pharyngitis due to other specified organisms (principal); J06.9 Acute upper respiratory infection, unspecified; E66.01 Morbid (severe) obesity due to excess calories; Z68.33 Body mass index [BMI] 33.0-33.9, adult
CPT/HCPCS: 71046; 87081; 87880; 99213; G0463

== ENCOUNTER 2024-06-25 19:18 | Emergency (ER) | payer OTHER, SELFPAY ==
[2024-06-25 19:37] VITALS: BP 112/56; PULSE 64; RESP 18; TEMP 36.3; O2SAT 100
--- NOTE | 2024-06-25 19:49 | ED_ITS ---
HPI - Extremity Problem General Chief complaint: Extremity Problem,Nontraumatic Stated complaint: RT Shoulder Pain Source: patient Mode of arrival: ambulatory Limitations: no limitations History of Present Illness HPI Narrative: 44-year-old female presented for complaint of right shoulder pain for 2 weeks following an injury. She states while walking up the stairs she slipped and fell landing on the right elbow. Denies pain radiating down the arm, numbness, tingling, or weakness. Endorses slight decreased range of motion at the shoulder due to the pain. Has been taking Tylenol and using ice and massage gu n. Related Data Allergies Allergy/AdvReac Type Severity Reaction Status Date / Time Penicillins Allergy Unknown Hives Verified 06/25/24 19:49 Review of Systems Review of Systems: CONSTITUTIONAL: Denies body aches, fever, chills CARDIOVASCULAR: Denies chest pain, palpitations, or edema. RESPIRATORY: Denies cough or dyspnea. GASTROINTESTINAL: Denies abdominal pain, nausea, vomiting, or diarrhea. SKIN: Denies rash, itching, or wounds. MUSCULOSKELETAL: Reports right shoulder pain NEUROLOGIC: Denies numbness, tingling, or weakness. All systems reviewed & are unremarkable except as noted in HPI and below PMFSH Past Medical History Medical History Anxiety Morbid obesity Nausea Chronic LUQ pain Surgical History Surgical History Status post biliopancreatic diversion with duodenal switch Gastric bypass status for obesity Family History Family History Father Hypertension Family history of elevated blood lipids Family history of diabetes mellitus in first degree relative Other Carcinoma of colon Cerebrovascular accident Family history of allergic disorder Family history of malignant neoplasm Family history of tuberculosis Social History Social History Smoking status: Never smoker Alcohol intake: current Substance use: never Comments At time of signature, I have reviewed and agree with nursing past medical, surgical, social and family history unless otherwise noted. Please see nursing chart for further information. There is no relevant family history pertinent to the presenting complaint Exam Narrative: GENERAL: Well-appearing CHEST: Speaks in full sentences. No respiratory distress. HEART: Regular rate and rhythm. Normal and equal peripheral pulses. EXTREMITIES: RUPatito has normal strength and sensation, slightly decreased range of motion at shoulder with overhead movement due to pain with movement. Tender with palpation over scapula and deltoid. No swelling erythema or ecchymosis, No open wounds, or obvious deformity; alignment normal, pulse palpable and equal bilaterally, skin warm, dry, pink. Capillary refill less than 3 seconds. SKIN: Warm, dry, no rash. NEURO: Alert and oriented x3. PSYCH: Normal mood and affect Course Course Emergency Course: Patient is aware of diagnosis, understands and agrees to treatment plan. Anticipatory guidance given. Patient agrees to follow-up as directed and is aware of reasons to seek care at the emergency department. Portions of this record may have been created with voice recognition software Level of Care: Express Care Visit Vital Signs Vital signs: Vital Signs Temperature 97.4 F L 06/25/24 19:37 Pulse Rate 64 06/25/24 19:37 Respiratory Rate 18 06/25/24 19:37 Blood Pressure 112/56 L 06/25/24 19:37 Pulse Oximetry 100 06/25/24 19:37 Oxygen Delivery Room Air 06/25/24 19:37 Temperature 97.4 F L 06/25/24 19:37 Pulse Rate 64 06/25/24 19:37 Respiratory Rate 18 06/25/24 19:37 Blood Pressure 112/56 L 06/25/24 19:37 Pulse Oximetry 100 06/25/24 19:37 Oxygen Delivery Room Air 06/25/24 19:37 Reviewed MDM - Extremity (Nontraumatic) MDM Narrative Medical decision making narrative: Discussed physical exam findings. Advised supportive measures and signs/symptoms to go to the ER. Pt is appropriate for outpt treatment and f/u. Provided with in fo to f/u with Ortho. Differential Diagnosis Differential diagnosis: Likely other (Shoulder dislocation, clavicle fracture, humerus fracture, scapular fracture, acromioclavicular joint injury, rotator cuff tear, bicep tendon rupture, tricep tendon rupture) Discharge Plan Discharge Clinical Impression: Acute pain of right shoulder Patient Disposition: Home, Self-Care Condition: Stable Instructions: Rotator Cuff Injury (ED), Shoulder Pain (ED) Additional Instructions: Rest. Avoid pushing, pulling, lifting or anything that worsens the symptoms Take the steroid as directed Tylenol 1000mg every 8 hours as needed Cyclobenzaprine (Flexeril) is a muscle relaxer. Take it as directed. It can cause drowsiness so do not drive or operate machinery until you know how it makes you feel. Alternate ice/heat to the site. Lidocaine or salon pas pain patch or use pain cream like icy/hot or biofreeze. Follow up with your primary care provider and promotion specialist. Call tomorrow to schedule appointment Go to the ER for worsening symptoms or concerns Patient Language: [place] Prescriptions: New cyclobenzaprine 10 mg tablet 10 mg PO TID PRN (Reason: muscle spasm) Qty: 10 0RF prednisone 50 mg tablet 50 mg PO DAILY Qty: 5 0RF Follow-up/Referrals: Torres Barrow MD [Primary Care Provider] -
== END 2024-06-25 20:09 | disposition home or self-care (01) ==
PROVIDERS: Emergency Provider Nurse Practitioner Family; PCP Internal Medicine
DX: M25.511 Pain in right shoulder (principal); E66.01 Morbid (severe) obesity due to excess calories; Z98.84 Bariatric surgery status
CPT/HCPCS: 99213; G0463

== ENCOUNTER 2024-07-03 16:23 | Outpatient (CLI) | payer OTHER, SELFPAY ==
--- NOTE | ~2024-07-03 | XR_ITS ---
EXAM: XR shoulder RT min 2V DATE: 07/03/2024 16:33 HISTORY: M25.511 - Pain in right shoulder . COMPARISON: None available. FINDINGS: Normal mineralization. No fracture or dislocation. No lytic or blastic lesion. Mild degene rative change at the AC joint. No erosion or periosteal change. Soft tissues within normal limits. IMPRESSION: No acute osseous finding in the right shoulder. Reviewed, dictated and finalized at location K. [employer]
== END 2024-07-03 16:24 | disposition home or self-care (01) ==
LOC: MICIMG 16:24
PROVIDERS: PCP Internal Medicine; Visit Provider Orthopaedic Surgery
DX: M25.511 Pain in right shoulder (principal)
CPT/HCPCS: 73030

== ENCOUNTER 2024-08-12 14:37 | Outpatient (CLI) | payer OTHER, SELFPAY ==
--- NOTE | ~2024-08-12 | MR_ITS ---
EXAMINATION: MR shoulder RT wo con DATE: 08/12/2024 15:13 INDICATION: M75.21 - Bicipital tendinitis, right shoulder . TECHNIQUE: Magnetic resonance imaging (MRI) of the right shoulder was performed without intravenous c ontrast. Sequences included axial PD-weighted FS FSE, coronal oblique PD-weighted FS FSE and T2-weigh veronica FS FSE, and sagittal oblique T2-weighted FS FSE and T1-weighted FSE. COMPARISON: X-ray right shoulder 07/03/2024. FINDINGS: Coracoacromial arch: Mild anterior downsloping of the slightly curved acromion (type II). 3 mm inferiorly directed distal clavicular osteophyte. Subacromial space measures 6 cm. No subcoracoid narrowing. Rotator cuff: Mild supraspinatus thinning. Mildly increased signal intensity at the muscular tendinous junction of the supraspinatus. No focal supraspinatus defect or atrophy. The infraspinatus, teres minor, and subs capularis are intact. Biceps tendon and glenoid labrum: Mild degenerative signal change in the superior labrum, without focal tear. The long head of biceps t endon is intact. Fluid: Minimal subacromial subdeltoid fluid with mild superior cuff fraying. Bones/cartilage: Marrow edema in the distal clavicle and proximal acromion. Small subchondral cyst in the proximal acr omion. Abnormal signal and thickening of the coracoclavicular ligament. Mild abnormal signal surround ing the coracoacromial ligament. Mild-moderate degenerative change at the AC joint. Abnormal signal s urrounding the distal clavicle AC joint and proximal acromion. IMPRESSION: Mild osseous outlet compromise with small volume subacromial subdeltoid sinusitis. No rotator cuff te ar. Mild supraspinatus tendinopathy and superior fraying. Mild to moderate degenerative change at the AC joint with surrounding inflammatory change, and the jaimes ggestion of partial tears of the acromioclavicular and coracoclavicular ligaments as can be seen with prior AC joint injury. Long head of biceps tendon is intact. No MRI evidence of significant biceps tendinitis. Reviewed, dictated and finalized at location [facility] IMPRESSION: Mild osseous outlet compromise with small volume subacromial subdeltoid sinusit is. No rotator cuff tear. Mild supraspinatus tendinopathy and superior fraying. Mild to moderate degenerative change at the AC joint with surrounding inflammat ory change, and the suggestion of partial tears of the acromioclavicular and co racoclavicular ligaments as can be seen with prior AC joint injury. Long head of biceps tendon is intact. No MRI evidence of significant biceps ten dinitis.
== END 2024-08-12 14:38 | disposition home or self-care (01) ==
PROVIDERS: PCP Internal Medicine; Visit Provider Physician Assistant Surgical
DX: M75.21 Bicipital tendinitis, right shoulder (principal); M75.81 Other shoulder lesions, right shoulder
CPT/HCPCS: 73221

== ENCOUNTER 2024-10-31 08:12 | Outpatient (CLI) | payer OTHER, SELFPAY ==
[2024-10-31 08:53] LABS: Hematocrit 28.7 % (37.0-47.0); Hemoglobin 7.8 g/dL (12.0-15.0)
== END 2024-10-31 08:13 | disposition home or self-care (01) ==
LOC: ANHLAB 08:13
PROVIDERS: PCP Internal Medicine; Visit Provider Anesthesiology
DX: D64.9 Anemia, unspecified (principal)
CPT/HCPCS: 36415; 85014; 85018

== ENCOUNTER 2024-11-05 00:49 | Day surgery (SDC) | payer OTHER, SELFPAY ==
[2024-10-29 08:06] VITALS: BMI 39.5
--- NOTE | 2024-10-29 08:13 | PC.NURSE ---
Report to the Outpatient Waiting Room, entrance under the green pavilion located off [facility], at time _1100_ on date _[id number]_. Planned Procedure Time: _1pm_.? Time changes happen often and if your time is changed the preop area will call you the afternoon before. - You and your visitor will be asked to self-screen and do not enter if you have any COVID symptoms. Please call surgeon if you need to reschedule. - A mask is optional within the hospital at this time. Patients may have clear liquids (water, carbonated beverages, clear teas, apple juice) until 3 hours prior to surgery with a maximum of 20 ounces. - No food from midnight until time of surgery and no smoking, or chewing tobacco (or any form of nicotine). No chewing gum, candy or mints. Take only the following medications with a SIP of water on the morning of surgery: ___None____ DO NOT STOP ANY OF YOUR OTHER PRESCRIPTION MEDICATIONS PRIOR TO SURGERY EXCEPT THE FOLLOWING Hold all vitamins and supplements for 3 days per anesthesiologist. Medications to discontinue per physician Date to take last dose Please no make-up, nail belgian, hairspray, perfume, deodorant, or body powder the day of surgery.? No jewelry (including any body piercings) or valuables the day of surgery, leave them at home.? Please take a shower or bath the night before, or the morning of, surgery with an antibacterial soap.? Wear comfortable, loose fitting clothing.? - Jewelry must be removed prior to entering the operating room.? Rings and piercings that are not removed may be cut off. - The hospital will not accept responsibility for valuables.? - Please leave all valuables, including medications, at home the day of surgery. If you are going home after surgery, a licensed shag truck driver must drive you home.? - NO public transportation without another adult if you receive anesthesia. - We recommend that an adult stay with you for 24 hours following discharge. - We also recommend that you do not drive, make important decision, drink alcoholic beverages, or take any drugs that were not prescribed by your health care provider for at least 24 hours after your discharge time. Follow any additional instructions given to you from your surgeon. Telephone instructions given to __Stephanie___and asked if any additional questions and then verbalized understanding. Patient advised to call surgeon office or pre surgery nurse liaison [phone] if any additional questions.
--- NOTE | 2024-11-03 15:00 | SUR.PREOP ---
Hgb 7.8 - OK to proceed with shoulder scope per Dr. Brownlee. He recommends patient begin taking her iron supplement. Spoke with patient regarding low hemoglobin and encouraged her to take her iron supplement. Pt verbalizes understanding.
[2024-11-05] VITALS (8 sets, daily range): BP systolic 116–132; BP diastolic 68–77; PULSE 60–78; RESP 12–15; TEMP 36.2–36.6; O2SAT 98–100; BMI 39.6
--- NOTE | 2024-11-05 07:35 | WPDHPUPDATE1 ---
History and Physical Update Update Date/Time: 11/05/24 07:35 History and Physical has been reviewed, including an updated exam of the patient. There are NO changes in the patient's condition. Risks, benefits, and alternatives have been discussed and questions answered. Patient agrees to proceed with procedure.
[2024-11-05] MEDS: LACTATED RINGERS 1,000 ML 30 ML IV CONT ×3 (12:00→15:32)
[2024-11-05] MEDS: KETOROLAC 15 MG/ML VIAL (*BKC) IV PUSH (12:00)
[2024-11-05 12:01] LABS: BEDSIDEPREGUCG Negative (Negative)
--- NOTE | 2024-11-05 12:44 | P.PNAN_ITS ---
Anes - Initial Pre Proc Eval Procedure: Operation Date: 11/05/24 13:00 Proposed Procedures p Right Shoulder Arthroscopic Distal Clavicle Excision with Subacromial Decompression - Cruz Bettencourt MD Date/Time: 11/05/24 12:44 Surgeon: Cruz Bettencourt MD Pre Op Diagnosis: Right Rot Cuff Tendonitis, AC Joint Arthritis Patient Data Age: 44 Gender: F Height: 1.75 m Weight: 121.8 kg Last Vital Signs Temp 36.6 C 11/05/24 11:57 Pulse 77 11/05/24 11:57 BP 116/70 11/05/24 11:57 Pulse Ox 99 11/05/24 11:57 O2 Del Method Room Air 11/05/24 11:57 Allergies Allergy/AdvReac Type Severity Reaction Status Date / Time Penicillins Allergy Unknown Hives Verified 11/05/24 11:56 Home Medications ?Medication ?Instructions ?Recorded ?Confirmed ?Type oxycodone-acetaminophen 5 mg-325 1 - 2 tablet PO Q4-6H PRN pain 7 11/05/24 Rx mg tablet days #30 tabs Laboratory Tests 11/05/24 11:57 POC Urine HCG, Qual Negative (Negative) Patient hx anesthesia problems: none Family hx anesthesia problems: none Results Review: All pre-operative results and documents have been reviewed as part of the pre- operative evaluation. [facility] Past Medical History Medical History Anxiety Morbid obesity Nausea Chronic LUQ pain Surgical History Surgical History Status post biliopancreatic diversion with duodenal switch Gastric bypass status for obesity Family History Family History Father Hypertension Family history of elevated blood lipids Family history of diabetes mellitus in first degree relative Other Carcinoma of colon Cerebrovascular accident Family history of allergic disorder Family history of malignant neoplasm Family history of tuberculosis Social History Social History Smoking status: Never smoker Alcohol intake: current Substance use: never Do You Feel Safe in your Home?: Yes Lack of Transportation: No Lack of Food: Never True Current Housing: I Have Housing Concerned About Future Housing: No Difficulty Paying Gas/Electric Bills: No Difficulty Paying for Meds: No Currently Unemployed: No Education: Bachelor's Degree Difficulty w/ Childcare or Family Care: No Living arrangements: with family Spiritual care concerns: No Anes - Eval Final PreProcedure Day of Procedure 11/05/24 12:44 Patient weight: obese Heart: regular rate and rhythm Lungs: clear to auscultation Airway: Mallampati scale class II Neurological: alert and oriented Last oral intake: >/= 8 hours ASA classification: II Emergent: no Anesthetic plan: proceed Anesthesia type and monitoring: general ETT and standard monitoring Results Review: All pre-operative results and documents have been reviewed as part of the pre- operative evaluation. Informed Consent: The patient's anesthetic plan and its attendant risks and benefits were discussed with the patient/family/POA. Questions were solicited and answers provided to the satisfaction of the patient/family/POA.
[2024-11-05] MEDS: ceFAZolin 3 GM/D5W 100 ML 100 ML IVPB (13:28)
--- NOTE | 2024-11-05 14:55 | WPDANESPNB ---
Anes - Peripheral Nerve Block Date/Time: 11/05/24 14:55 I have discussed with the patient/family/POA the placement of a peripheral nerve block for post-operative pain management, including associated risks, benefits, complications, and side effects. Alternative methods of post-operative analgesia were detailed. Questions were solicited and answers provided to the satisfaction of the patient/family/POA. Time-Out: A pre-procedural Time-Out was completed immediately before starting the procedure and confirmed: Patient Identification, Site, Procedure, Patient Position and the Availability of Requisite Equipment. Clinical Indications: Acute post-operative pain management requested by the operative surgeon. Nerve Block Insertion Note Anes-nerve block: interscalene right Patient position: supine Skin prep: chlorhexidine Needle: 22 gauge, stimulating, insulated echogenic needle. Needle length: 50 mm Technique: ultrasound Injectate: bupivacaine 0.5% with epi 5 mcg/ml (20cc- no epi) Observations: tolerated well Complications: none Procedure start time:: 1320 Procedure end time:: 1325
--- NOTE | 2024-11-05 15:13 | P.OP_ITS ---
Procedure Note - Detailed Date of Procedure 11/05/24 Pre-op Diagnosis Right Rot Cuff Tendonitis, AC Joint Arthritis Post-op Diagnosis Other (1. Rotator cuff tendonitis right shoulder 2. AC joint arthritis 3. Low-grade partial articular rotator cuff tear 4. Type 1 Degenerative SLAP tear) Procedure Performed Right shoulder shoulder arthroscopic 1. Distal clavicle excision 2. Subacromial decompression 3. Labral and rotator cuff debridement Surgeon Cruz Bettencourt MD Director Of Brand Marketing Keira Calero PA-C Anesthesia General Findings Very lax tissues. Low-grade articular supraspinatus tear treated with debridement. Type 1 degenerative SLAP tear and anterior labral tear (small area, <20%) treated with gentle debridement. Distal clavicle spurs and inflammation treated with distal clavicle excision. Subacromial decompression performed. All other tissues looked good. Description of Procedure Preoperative antibiotics were given. The patient was brought to the operating room. Careful positioning in the beach chair was accomplished. The head neck were carefully positioned. A small bump was placed under the shoulder. The shoulder was prepped and draped in the usual sterile fashion. Examination under anesthesia performed. She is morbidly obese but has lost a lot a weight. The tissues were remarkably lax. Standard posterior and anterior arthroscopic portals were established. The glenohumeral joint looked very good other than mild fraying of the superior labrum and anterior labrum. There was a low-grade partial tear of the articular supraspinatus treated with gentle debridement. The tissue quality was good. A spinal needle perforated the tear and the tissue gave good resistance. This was marked with a PDS suture. Attention was turned to the subacromial space. A complete bursectomy was performed. The bursal side rotator cuff looked and felt normal. The distal clavicle did have significant degenerative changes. The acromion was clearly visualized. Careful acromioplasty was performed. The distal clavicle was excised with an accessory anterior portal. Approximately 1 cm bone was removed. The 70 degree scope was used to confirm complete excision of necessary bone. Loose bone fragments were carefully irrigated from the joint. The arthroscopic instruments were removed. The wounds were closed with interrupted 3-0 Monocryl suture followed by Steri- Strips. A sterile dressing was applied with a sling. The patient was extubated and brought to the recovery room in stable condition. There were no complications. Estimated Blood Loss 10 Drains No Packing No Pathology None sent Complications No immediate complications Condition Stable Disposition PACU [facility] Billing Surgery - Charge Forward: Surgery Billing
[2024-11-05] MEDS: oxyCODONE HCL (*CRX) 5 MG TAB IR PO (16:18)
== END 2024-11-05 17:00 | disposition home or self-care (01) ==
PROVIDERS: PCP Internal Medicine; Visit Provider Orthopaedic Surgery
PROC: (CPT 29805; principal; 2024-11-05 13:00)
DX: S46.011A Strain of muscle(s) and tendon(s) of the rotator cuff of right shoulder, initial encounter (principal); S43.431A Superior glenoid labrum lesion of right shoulder, initial encounter; M19.011 Primary osteoarthritis, right shoulder; W10.9XXA Fall (on) (from) unspecified stairs and steps, initial encounter; G89.18 Other acute postprocedural pain; E66.9 Obesity, unspecified; Z68.39 Body mass index [BMI] 39.0-39.9, adult
CPT/HCPCS: 29823; 29824; 64415; A9270; J0171; J0690; J1100; J1171; J1885; J2003; J2250; J2405; J2704; J3010; J7120

== ENCOUNTER 2025-01-28 08:16 | Emergency (ER) | payer OTHER, SELFPAY ==
[2025-01-28 08:29] VITALS: BP 111/64; PULSE 78; RESP 16; TEMP 37.2; O2SAT 100
[2025-01-28 08:42] LABS: EDSTREPNEGPOS1 Negative (Negative)
--- NOTE | 2025-01-28 08:47 | ED.URI ---
HPI - URI/Sore Throat General Chief Complaint: Upper Respiratory Infection Stated Complaint: SORE THROAT Time Seen by Provider: 01/28/25 08:20 Source: patient and RN notes reviewed Mode of arrival: ambulatory Limitations: no limitations History of Present Illness HPI Narrative: 44-year-old female presents Express Care complaining of sore throat and left ear pain for approximately 4 days. Patient denies any other upper respiratory symptoms, cough, fevers, chills, body aches, nausea vomiting, chest pain or difficulty breathing, or any other symptoms. Patient says she has been using cough drops with some relief. Related Data Home Medications ?Medication ?Instructions ?Recorded ?Confirmed ?Last Taken ?Type No Home Medications 11/18/24 01/28/25 Unknown History Allergies Allergy/AdvReac Type Severity Reaction Status Date / Time Penicillins Allergy Unknown Hives Verified 01/28/25 08:26 Review of Systems Review of Systems: CONSTITUTIONAL: Denies fever, chills, or sweats. EYES: Denies visual changes, redness, or discharge. ENT: Denies rhinorrhea, congestion. Positive for otalgia and sore throat. CARDIOVASCULAR: Denies chest pain, palpitations, or edema. RESPIRATORY: Denies cough or dyspnea. GASTROINTESTINAL: Denies abdominal pain, nausea, vomiting, or diarrhea. GENITOURINARY: Denies dysuria or hematuria. SKIN: Denies rash or itching. MUSCULOSKELETAL: Denies back pain, joint pain, or myalgia. NEUROLOGIC: Denies headache, numbness, or weakness. PSYCHIATRIC: Denies anxiety or depression. All other systems reviewed are negative, except as documented in HPI. [facility] Past Medical History Medical History Right rotator cuff tendonitis Biceps tendonitis on right Arthrosis of right acromioclavicular joint Rotator cuff impingement syndrome of right shoulder Anxiety Morbid obesity Nausea Chronic LUQ pain Surgical History Surgical History Status post arthroscopy of right shoulder (~11/05/24) Right shoulder arthroscopic DCE, SAD, Labral and RC Debridement Status post biliopancreatic diversion with duodenal switch Gastric bypass status for obesity Family History Family History Father Hypertension Family history of elevated blood lipids Family history of diabetes mellitus in first degree relative Other Carcinoma of colon Cerebrovascular accident Family history of allergic disorder Family history of malignant neoplasm Family history of tuberculosis Social History Social History Smoking status: Never smoker Alcohol intake: current Substance use: never Do You Feel Safe in your Home?: Yes Lack of Transportation: No Lack of Food: Never True Current Housing: I Have Housing Concerned About Future Housing: No Difficulty Paying Gas/Electric Bills: No Difficulty Paying for Meds: No Currently Unemployed: No Education: Bachelor's Degree Difficulty w/ Childcare or Family Care: No Living arrangements: with family Spiritual care concerns: No Comments At the time of my signature, I reviewed and agree with the nursing past medical, surgical, social, and family history. There is no relevant family history pertinent to the patient complaint. Exam Narrative: GENERAL: This is a well-nourished, well-developed adult, in no apparent distress. They are non ill-appearing, nontoxic appearing. HEAD: normocephalic, atraumatic. EYES: Sclera clear/white. Conjunctiva normal. Vision is grossly intact. Extraocular movements intact EARS: External ears normal, auditory canals clear and without drainage, TMs normal without perforation. Hearing grossly intact. NOSE: External nose normal with no obvious nasal discharge, nasal turbinates without redness, no rhinorrhea. THROAT: Mucous membranes moist, posterior pharynx erythemic without swelling. Uvula midline. NECK: Neck supple, tender with mild cervical lymphadenopathy, no masses or thyromegaly. CARDIOVASCULAR: Regular rate and rhythm without murmurs, gallops, or rubs. RESPIRATORY: Clear to auscultation. Breath sounds equal bilaterally. No wheezes, rales, or rhonchi. SKIN: warm, Dry, intact with no suspicious lesions or rash, good texture and turgor. NEURO: awake, alert, and oriented to person, place and time. There were no obvious focal neurologic abnormalities. EXTREMITIES: No joint tenderness, effusion, or edema noted. Course Course Emergency Course: Portions of this record may have been created with voice recognition software Level of Care: Express Care Visit Vital Signs Vital signs: Vital Signs Temperature 98.9 F 01/28/25 08:29 Pulse Rate 78 01/28/25 08:29 Respiratory Rate 16 01/28/25 08:29 Blood Pressure 111/64 01/28/25 08:29 Pulse Oximetry 100 01/28/25 08:29 Temperature 98.9 F 01/28/25 08:29 Pulse Rate 78 01/28/25 08:29 Respiratory Rate 16 01/28/25 08:29 Blood Pressure 111/64 01/28/25 08:29 Pulse Oximetry 100 01/28/25 08:29 Reviewed MDM - URI/Sore Throat MDM Narrative Medical decision making narrative: Rapid strep negative. Throat culture pending. Symptoms likely viral in etiology. Discussed physical exam findings. Advised supportive measures and signs/symptoms to go to the ER. Pt is appropriate for outpt treatment and f/u. Differential Diagnosis Differential diagnosis: Likely upper respiratory infection, otitis media, viral infection and pharyngitis Lab Data Attestation: I reviewed the patient's lab results. Labs: Lab Results 01/28/25 Range/Units 08:40 POC Grp A Strep Screen Negative (Negative) Critical Care Time Critical Care Time Critical Care Time: No Discharge Plan Discharge Clinical Impression: Pharyngitis Qualifiers: Pharyngitis/tonsillitis etiology: unspecified etiology Qualified Code(s): J02.9 - Acute pharyngitis, unspecified Patient Disposition: Home Condition: Stable Instructions: Pharyngitis (ED) Additional Instructions: Your rapid strep swab was negative today at [facility]. You will be notified in a few days if the culture comes back positive for strep, and appropriate antibiotics will be called in for you at that time. Your symptoms are likely due to a viral illness, which is not treated with antibiotics. Viral symptoms can be present for up to 10-14 days. Take Tylenol or ibuprofen for fever or pain. Rest and stay hydrated. Follow up with your PCP in 3-5 days if symptoms are not improving. Go to the ER immediately if you develop difficulty breathing or swallowing Patient Language: Ghanaian Prescriptions: No Action No Home Medications Follow-up/Referrals: Torres Barrow MD [Primary Care Provider] - Time of Disposition: 08:45
== END 2025-01-28 08:49 | disposition home or self-care (01) ==
PROVIDERS: PCP Internal Medicine
DX: J02.9 Acute pharyngitis, unspecified (principal); E66.01 Morbid (severe) obesity due to excess calories; Z68.39 Body mass index [BMI] 39.0-39.9, adult
CPT/HCPCS: 87081; 87880; 99213; G0463